=== PATIENT | female | born 2000 | race Caucasian/White ===

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

== ENCOUNTER 2021-12-01 19:14 | Inpatient (IN) ==
[2021-12-01] MEDS ORDERED: NS 0.9% 1000 ml BAG 1,000 ML IV ONE (19:42)
[2021-12-01 20:13] LABS: Hematocrit 33 % (35-47); Mean Corpuscular HGB Conc 33 g/dL (31-36); Mean Corpuscular Hemoglobin 27 pg (27-31); Mean Corpuscular Volume 82 fL (80-97); Mean Platelet Volume 8.8 fL (7.4-10.4); Platelet Count 196 10^3/uL (150-450); Red Blood Count 4.05 10^6 /uL (3.70-4.87); Red Cell Distribution Width 13 % (10-15); White Blood Count 14.4 10^3/uL (3.5-10.8)
[2021-12-01 20:24] LABS: Rapid Strep Molecular Negative (Negative)
[2021-12-01 20:49] LABS: ABS Lymphocytes 1.1 10^3/ul (1.0-4.8); ABS Monocytes 1.9 10^3/ul (0-0.8); ABS Neutrophils 11.3 10^3/ul (1.5-7.7); Eosinophil % 0.3 %
[2021-12-01 20:53] LABS: Albumin 3.6 g/dL (3.2-5.2); Anion Gap 8 mmol/L (2-11); CO2 Carbon Dioxide 24 mmol/L (22-32); Calcium 8.5 mg/dL (8.6-10.3); Chloride 102 mmol/L (101-111); Potassium 3.6 mmol/L (3.5-5.0); Sodium 134 mmol/L (135-145)
[2021-12-01 20:59] LABS: AST 18 U/L (13-39); Alkaline Phosphatase 80 U/L (35-149); Blood Urea Nitrogen 8 mg/dL (6-24); Glucose 103 mg/dL (70-100); Lipase 18 U/L (11.0-82.0); eGFR CKD-EPI 108.1 (>60)
[2021-12-01 21:05] LABS: HCG Pregnancy < 0.60 mIU/mL
[2021-12-01 21:19] LABS: ALT 16 U/L (7-52); Albumin/Globulin Ratio 1.4 (1-3); Globulin 2.6 g/dL (2-4); Total Protein 6.2 g/dL (6.4-8.9)
[2021-12-01 21:26] LABS: Urine Appearance Cloudy; Urine Bilirubin Negative (Negative); Urine Blood 1+ (Negative); Urine Color Yellow; Urine Glucose Negative (Negative); Urine Ketones Trace (Negative); Urine Nitrite Positive (Negative); Urine Protein Negative (Negative); Urine Specific Gravity 1.006 (1.002-1.030); Urine Urobilinogen Negative (Negative)
[2021-12-01 21:32] LABS: Urine Bacteria 1+ (Absent); Urine Red Blood Cell 1+(3-5/hpf) (Absent); Urine Squamous Epithelial Cell Present (Absent); Urine White Blood Cell 3+(>20/hpf) (Absent)
[2021-12-01] MEDS ORDERED: cefTRIAXone 1 gm/50 mL D5W 1 GM/50 ML BAG IV ONE (22:49)
[2021-12-01] MEDS ORDERED: Iohexol 300 (CONTRAST) 10 ML SDV IV ONE (23:09)
[2021-12-02] MEDS: NS 0.9% 1000 ml BAG 1,000 ML IV SCH ×5 (01:14→23:02)
[2021-12-02] MEDS ORDERED: Iohexol 350 (CONTRAST) 500 ML MDV IV ONE (16:55)
[2021-12-02] MEDS ORDERED: Enoxaparin 80 MG/0.8 ML SYR SUBCUT ONE (19:15)
[2021-12-02] MEDS: cefTRIAXone 1 gm/50 mL D5W 1 GM/50 ML BAG IV SCH (22:56)
[2021-12-03 05:02] LABS: ABS Eosinophils 0.1 10^3/ul (0-0.6); ABS Lymphocytes 2.5 10^3/ul (1.0-4.8); ABS Monocytes 1.5 10^3/ul (0-0.8); ABS Neutrophils 6.9 10^3/ul (1.5-7.7); Eosinophil % 0.6 %; Hematocrit 35 % (35-47); Hemoglobin 11.2 g/dL (12.0-16.0); Lymphocyte % 22.5 %; Mean Corpuscular HGB Conc 32 g/dL (31-36); Mean Corpuscular Hemoglobin 27 pg (27-31); Mean Corpuscular Volume 83 fL (80-97); Mean Platelet Volume 8.6 fL (7.4-10.4); Platelet Count 204 10^3/uL (150-450); Red Blood Count 4.17 10^6 /uL (3.70-4.87); Red Cell Distribution Width 13 % (10-15); White Blood Count 10.9 10^3/uL (3.5-10.8)
[2021-12-03 05:19] LABS: Calcium 8.4 mg/dL (8.6-10.3); eGFR CKD-EPI 109.8 (>60)
[2021-12-03] MEDS ORDERED: Ondansetron 4 mg VIAL 2 MG/ML 2 ml VIAL IV PRN (06:04)
[2021-12-03] MEDS ORDERED: Calcium Carb (TUMS) 500 mg CHEW TAB PO PRN (14:38)
[2021-12-03] MEDS: cefTRIAXone 1 gm/50 mL D5W 1 GM/50 ML BAG IV SCH (22:16)
[2021-12-04 06:11] LABS: ABS Lymphocytes 2.1 10^3/ul (1.0-4.8); ABS Monocytes 1.1 10^3/ul (0-0.8); ABS Neutrophils 3.9 10^3/ul (1.5-7.7); Eosinophil % 0.6 %; Hematocrit 31 % (35-47); Hemoglobin 10.5 g/dL (12.0-16.0); Lymphocyte % 29.4 %; Mean Corpuscular HGB Conc 33 g/dL (31-36); Mean Corpuscular Hemoglobin 27 pg (27-31); Mean Corpuscular Volume 81 fL (80-97); Mean Platelet Volume 8.1 fL (7.4-10.4); Nucleated Red Blood Cells % 0.1; Platelet Count 262 10^3/uL (150-450); Red Blood Count 3.91 10^6 /uL (3.70-4.87); Red Cell Distribution Width 13 % (10-15); White Blood Count 7.2 10^3/uL (3.5-10.8)
[2021-12-04 06:58] LABS: Calcium 8.3 mg/dL (8.6-10.3); Potassium 3.6 mmol/L (3.5-5.0); eGFR CKD-EPI 95.1 (>60)
[2021-12-04 07:41] VITALS: BP 122/74
[2021-12-04] MEDS ORDERED: Amoxicillin/Clavul 875/125 TAB (Augmentin 875 tab) PO ONE (09:51)
[2021-12-04 12:46] LABS: Chlamydia trachomatis NAA Negative (Negative); Neisseria gonorrhoeae (GC) NAA Negative (Negative)
== END 2021-12-04 11:20 | disposition home or self-care (01) | DRG 872 ==
LOC: ED 19:14 → EDHOLD 12-02 01:15 → SUATTDRO 12-02 01:15 → MED 12-02 03:50
PROVIDERS: ADMIT Internal Medicine; ATTEND Hospitalist